=== PATIENT | male | born 1955 | race African-American/Black ===

== ENCOUNTER 2016-09-20 03:56 | Emergency (ER) | payer OTHER ==
[~2016-09-20] VITALS: Ht 167.6 cm; Wt 79.4 kg
[~2016-09-20 03:56] MED LIST: AMLODIPINE BESY10 MG PO; BLOOD PRESSURE; POTASSIUM20 PO; SLEEPING PILL
[2016-09-20] MEDS ORDERED: RESTORIL30 MG PO (04:25)
[2016-09-20] MEDS ORDERED: COZAAR 50 MG TA50 M2 PO (04:25)
[2016-09-20] MEDS ORDERED: PREDNISONE 10 M10 MG PO (04:25)
[2016-09-20] MEDS ORDERED: HYDROCHLOROTHIA25 M2 PO (04:25)
[2016-09-20] MEDS ORDERED: CIALIS5 MG PO (04:25)
[2016-09-20] MEDS ORDERED: VITAMIN D1000 UNI1 PO (04:26)
[2016-09-20] MEDS ORDERED: VENTOLIN HFA 1818 GM INH (06:08)
[2016-09-20] MEDS ORDERED: SPACERADULT PO (06:08)
[2016-09-20 06:28] VITALS: BP 142/86
== END 2016-09-20 06:41 | disposition home or self-care (01) ==
LOC: ER 03:56
DX: S01.81XA Laceration without foreign body of other part of head, initial encounter (principal); F10.120 Alcohol abuse with intoxication, uncomplicated; Z85.118 Personal history of other malignant neoplasm of bronchus and lung; J45.909 Unspecified asthma, uncomplicated; J44.9 Chronic obstructive pulmonary disease, unspecified; Z86.12 Personal history of poliomyelitis; Z88.6 Allergy status to analgesic agent; F17.210 Nicotine dependence, cigarettes, uncomplicated; F10.99 Alcohol use, unspecified with unspecified alcohol-induced disorder; Y04.2XXA Assault by strike against or bumped into by another person, initial encounter

== ENCOUNTER 2016-09-26 14:08 | Emergency (ER) | payer OTHER ==
[~2016-09-26] VITALS: Ht 172.7 cm; Wt 74.8 kg
[~2016-09-26 14:08] MED LIST changes: +CIALIS5 MG PO; +COZAAR 50 MG TA50 M2 PO; +HYDROCHLOROTHIA25 M2 PO; +PREDNISONE 10 M10 MG PO; +RESTORIL30 MG PO; +SPACERADULT PO; +VENTOLIN HFA 1818 GM INH; +VITAMIN D1000 UNI1 PO
[2016-09-26 14:12] VITALS: BP 154/83
== END 2016-09-26 14:22 | disposition home or self-care (01) ==
LOC: ER 14:08
DX: Z48.02 Encounter for removal of sutures (principal); F10.99 Alcohol use, unspecified with unspecified alcohol-induced disorder; F17.210 Nicotine dependence, cigarettes, uncomplicated; J45.909 Unspecified asthma, uncomplicated; J44.9 Chronic obstructive pulmonary disease, unspecified; Z88.1 Allergy status to other antibiotic agents; Z88.5 Allergy status to narcotic agent; Z88.8 Allergy status to other drugs, medicaments and biological substances; Z85.118 Personal history of other malignant neoplasm of bronchus and lung

== ENCOUNTER 2017-08-04 09:46 | Emergency (ER) | payer OTHER ==
[~2017-08-04] VITALS: Ht 175.3 cm; Wt 70.3 kg
[2017-08-04] MEDS ORDERED: CYCLOBENZAPRINE5 MG PO (10:17)
[2017-08-04] MEDS ORDERED: ROXICODONE5 M2 PO (11:04)
[2017-08-04 11:10] VITALS: BP 136/73
== END 2017-08-04 11:23 | disposition home or self-care (01) ==
LOC: ER 09:46
DX: S76.012A Strain of muscle, fascia and tendon of left hip, initial encounter (principal); M62.838 Other muscle spasm; J44.9 Chronic obstructive pulmonary disease, unspecified; F17.210 Nicotine dependence, cigarettes, uncomplicated; Z85.118 Personal history of other malignant neoplasm of bronchus and lung; Z88.8 Allergy status to other drugs, medicaments and biological substances; Z88.6 Allergy status to analgesic agent; Z88.5 Allergy status to narcotic agent; X58.XXXA Exposure to other specified factors, initial encounter; Y93.89 Activity, other specified; Y92.89 Other specified places as the place of occurrence of the external cause; Y99.8 Other external cause status

== ENCOUNTER → 2018-02-22 | Outpatient (CLI) | payer OTHER ==
[~2018-02-22] MED LIST changes: +CYCLOBENZAPRINE5 MG PO; +PREDNISONE50 MG PO; +ROXICODONE5 M2 PO
== END ==
LOC: MRI 12:16
DX: M51.37 Other intervertebral disc degeneration, lumbosacral region (principal); M48.07 Spinal stenosis, lumbosacral region; G89.29 Other chronic pain; M54.32 Sciatica, left side

== ENCOUNTER → 2018-04-07 | Outpatient (CLI) | payer OTHER, SELFPAY | LOC: MRI 10:26 | DX: M47.812 Spondylosis without myelopathy or radiculopathy, cervical region (principal); M50.322 Other cervical disc degeneration at C5-C6 level; M50.223 Other cervical disc displacement at C6-C7 level; M25.78 Osteophyte, vertebrae; M47.816 Spondylosis without myelopathy or radiculopathy, lumbar region; M43.17 Spondylolisthesis, lumbosacral region; M48.061 Spinal stenosis, lumbar region without neurogenic claudication; G95.9 Disease of spinal cord, unspecified; J90 Pleural effusion, not elsewhere classified ==

== ENCOUNTER → 2018-07-27 | Outpatient (CLI) | payer OTHER ==
[~2018-07-27] VITALS: Ht 172.7 cm; Wt 72.6 kg
[~2018-07-27] MED LIST changes: +FLEXERIL PO
[2018-07-27 10:23] VITALS: BP 147/83
[2018-07-27 10:54] LABS: HEMATOCRIT 41.3 % (42.0-52.0); HEMOGLOBIN 14.3 gm/dL (14.0-18.0); MCH 31.4 pg (26.0-34.0); MCHC 34.6 g/dL (28.0-37.0); MCV 90.7 fL (80.0-100.0); RBC 4.55 mil/uL (4.50-6.00); RDW 15.5 % (10.5-14.5); WBC 5.1 thou/uL (4.0-11.0)
[2018-07-27 11:04] LABS: CALCIUM 9.5 mg/dL (8.5-10.1); CREATININE 0.7 mg/dL (0.7-1.3); POTASSIUM 3.5 mmol/L (3.5-5.1)
[2018-07-27 11:06] LABS: PROTIME 10.6 Seconds (9.3-11.4)
== END | disposition home or self-care (01) ==
LOC: SPEC 07:23
PROVIDERS: Radiology Vascular & Interventional Radiology
DX: Z45.2 Encounter for adjustment and management of vascular access device (principal); Z85.118 Personal history of other malignant neoplasm of bronchus and lung; Z90.2 Acquired absence of lung [part of]; J43.9 Emphysema, unspecified; I10 Essential (primary) hypertension; E78.5 Hyperlipidemia, unspecified; F17.210 Nicotine dependence, cigarettes, uncomplicated; Z98.890 Other specified postprocedural states; Z79.899 Other long term (current) drug therapy; Z88.8 Allergy status to other drugs, medicaments and biological substances; Z79.891 Long term (current) use of opiate analgesic

== ENCOUNTER 2019-12-08 16:26 | Emergency (ER) | payer OTHER ==
[~2019-12-08] VITALS: Ht 172.7 cm; Wt 72.6 kg
[2019-12-08 18:10] LABS: HEMATOCRIT 42.1 % (42.0-52.0); HEMOGLOBIN 14.6 gm/dL (14.0-18.0); MCH 33.4 pg (26.0-34.0); MCHC 34.7 g/dL (28.0-37.0); MCV 96.2 fL (80.0-100.0); RBC 4.38 mil/uL (4.50-6.00); RDW 15.5 % (10.5-14.5); WBC 8.7 thou/uL (4.0-11.0)
[2019-12-08 18:20] LABS: BE(vivo) -1.5 mmol/L (-2 to +3); HCO3 22.7 mmol/L (22.0-26.0); PCO2 36.6 mmHg (35.0-45.0); PO2 75.1 mmHg (80.0-100.0); sO2 95.3 % (92.0-98.0)
[2019-12-08 18:29] LABS: ANION GAP 13 mmol/L (7-16); BUN 9 mg/dL (7-18); CALCIUM 8.6 mg/dL (8.5-10.1); CHLORIDE 96 mmol/L (98-107); CO2 24 mmol/L (21-32); CREATININE 0.8 mg/dL (0.7-1.3); GLUCOSE 84 mg/dL (74-106); SODIUM 133 mmol/L (136-145); TROPONIN-I <0.06 ng/mL (<0.06)
[2019-12-08 18:34] LABS: POTASSIUM 2.7 mmol/L (3.5-5.1)
[2019-12-08 18:40] LABS: DIRECT BILIRUBIN 0.3 mg/dL (<0.1-0.2); TOTAL BILIRUBIN 0.6 mg/dL (<0.1-1.0); TOTAL PROTEIN 6.8 g/dL (6.4-8.2)
[2019-12-08 18:44] LABS: APTT 36.6 Seconds (24.5-32.8); PROTIME 10.6 Seconds (9.3-11.4)
[2019-12-08] MEDS ORDERED: TRAZODONE HCL100 MG PO (18:48)
[2019-12-08] MEDS ORDERED: ESCITALOPRAM OX10 MG PO (18:52)
[2019-12-08] MEDS ORDERED: CARVEDILOL6.25 M1 PO (18:52)
[2019-12-08] MEDS ORDERED: NEURONTIN 300300 M1 PO (18:53)
[2019-12-08] MEDS ORDERED: KLOR-CON M2020 MEQ PO (18:53)
[2019-12-08] MEDS ORDERED: LISINOPRIL10 MG PO (18:54)
[2019-12-08 19:29] LABS: URINE BILIRUBIN NEGATIVE (Negative); URINE BLOOD 2+ (Negative); URINE CLARITY CLEAR; URINE COLOR YELLOW; URINE GLUCOSE-RANDOM* NEGATIVE (Negative); URINE KETONES NEGATIVE (Negative); URINE NITRITE-REFLEX NEGATIVE (Negative); URINE PROTEIN (DIPSTICK) 2+ (Negative); URINE SPECIFIC GRAVITY <= 1.005 (1.005-1.035)
[2019-12-08 19:32] LABS: URINE LEUKOCYTES-REFLEX 3+ (Negative)
[2019-12-08 19:39] LABS: AMP/METHAMP Negative (Negative); BARBITURATES Negative (Negative); BENZODIAZEPINES Negative (Negative); COCAINE Negative (Negative); METHADONE Negative (Negative); OPIATES Negative (Negative); PCP Negative (Negative)
[2019-12-08 19:43] LABS: CASTS None Seen /LPF (None Seen); CRYSTALS None Seen /LPF (None Seen); SQUAMOUS None Seen /LPF (0-3); URINE RBC 0-2 Rare /HPF (0-2); URINE WBC-REFLEX >25 Many /HPF (0-5)
[2019-12-08] MEDS ORDERED: TESSALON PERLE100 MG PO (20:27)
[2019-12-08] MEDS ORDERED: PREDNISONE 20 M20 MG PO (20:27)
[2019-12-08] MEDS ORDERED: MAG-OXIDE400 MG PO (20:27)
[2019-12-08] MEDS ORDERED: DOXYCYCLINE 10100 MG PO (20:27)
[2019-12-08] MEDS ORDERED: VENTOLIN HFA 1818 GM INH (20:27)
[2019-12-08 21:16] VITALS: BP 145/84
--- NOTE | 2019-12-09 08:40 | EKG ---
[facility] [place] [address] ELECTROCARDIOGRAM REPORT Name: MELVA ARANA Room #: DEP [facility]#: [id number] Admission: 12/08/19 Attend Phys: Discharge: 12/08/19 Date of : 57 Report #: [id number] THIS REPORT FOR: cc: Torres Abraham James A. DO Couchonnal, Luis F. MD ~ THIS REPORT FOR: //name// [facility] ED Test Date: 2019-12-08 Test Time: 17:58:47 Pat Name: MELVA ARANA Department: Room: Gender: Grazing Examiner: ariella : 1955 Requested By: Jordan Garza Order Number: [id number] MD: Michele Nguyen Measurements Intervals [place] Rate: 99 P: 49 IN: 206 QRS: 33 QRSD: 97 T: 73 QT: 359 QTc: 461 Interpretive Statements Sinus rhythm Probable left atrial enlargement LVH with secondary repolarization abnormality Anterior Q waves, possibly due to LVH Compared to ECG 04/28/2015 11:03:01 Left ventricular hypertrophy now present Early repolarization now present Q waves now present Electronically Signed On 12-09-2019 8:38:44 CDT by Michele Nguyen [email or web address] <ELECTRONICALLY SIGNED> By: Michele Nguyen MD 12/09/19 0838 [id number] Michele Nguyen MD /EPI
== END 2019-12-08 21:17 | disposition still patient (30) ==
LOC: ER 16:26
PROVIDERS: Emergency Medicine
DX: J44.1 Chronic obstructive pulmonary disease with (acute) exacerbation (principal); J06.9 Acute upper respiratory infection, unspecified; N39.0 Urinary tract infection, site not specified; E87.6 Hypokalemia; E83.42 Hypomagnesemia; I10 Essential (primary) hypertension; F10.10 Alcohol abuse, uncomplicated; F17.210 Nicotine dependence, cigarettes, uncomplicated; Z79.899 Other long term (current) drug therapy; Z88.6 Allergy status to analgesic agent; Z90.2 Acquired absence of lung [part of]; Y90.9 Presence of alcohol in blood, level not specified

== ENCOUNTER 2020-06-18 20:48 | Emergency (ER) | payer OTHER ==
[~2020-06-18] VITALS: Ht 172.7 cm; Wt 72.6 kg
[~2020-06-18 20:48] MED LIST changes: +CARVEDILOL6.25 M1 PO; +DOXYCYCLINE 10100 MG PO; +ESCITALOPRAM OX10 MG PO; +KLOR-CON M2020 MEQ PO; +LISINOPRIL10 MG PO; +MAG-OXIDE400 MG PO; +NEURONTIN 300300 M1 PO; +PREDNISONE 20 M20 MG PO; +TESSALON PERLE100 MG PO; +TRAZODONE HCL100 MG PO
[2020-06-18] MEDS ORDERED: ZPAK PO (22:42)
[2020-06-18] MEDS ORDERED: PREDNISONE 20 M20 M1 PO (22:42)
[2020-06-18 23:52] VITALS: BP 146/81
--- NOTE | 2020-06-19 11:22 | EKG ---
[facility] [place] [address] ELECTROCARDIOGRAM REPORT Name: MELVA ARANA Room #: REG [facility]#: [id number] Admission: 06/18/20 Attend Phys: Discharge: Date of : 57 Report #: [id number] THIS REPORT FOR: cc: oTrres Abraham James A. DO Santiago, Patrick MD [facility] ~ THIS REPORT FOR: //name// [facility] ED Test Date: 2020-06-18 Test Time: 22:04:22 Pat Name: MELVA ARANA Department: Room: Gender: M Placement Interviewer: David : 1955 Requested By: Prem Brannon Order Number: [id number] MD: Larry Hayes Measurements Intervals [place] Rate: 83 P: 51 [place]: 170 QRS: 33 QRSD: 110 T: 47 QT: 441 QTc: 519 Interpretive Statements Sinus rhythm Probable left atrial enlargement Anteroseptal infarct, old Prolonged QT interval Artifact in lead(s) I,II,aVR,aVF,V1,V2 Compared to ECG 12/08/2019 17:58:47 Myocardial infarct finding now present Electronically Signed On 06-19-2020 11:22:06 CDT by Larry Hayes [email or web address] <ELECTRONICALLY SIGNED> By: Larry Hayes MD, FACC 06/19/20 1122 03 03 Larry Hayes MD, FACC /EPI
== END 2020-06-18 23:47 | disposition home or self-care (01) ==
LOC: ER 20:48
DX: J44.1 Chronic obstructive pulmonary disease with (acute) exacerbation (principal); F10.129 Alcohol abuse with intoxication, unspecified; I10 Essential (primary) hypertension; F17.210 Nicotine dependence, cigarettes, uncomplicated; Z79.899 Other long term (current) drug therapy; Z88.5 Allergy status to narcotic agent; Z88.8 Allergy status to other drugs, medicaments and biological substances; Y90.9 Presence of alcohol in blood, level not specified

== ENCOUNTER 2020-07-31 14:55 | Emergency (ER) | payer OTHER ==
[~2020-07-31] VITALS: Ht 170.2 cm; Wt 79.4 kg
[~2020-07-31 14:55] MED LIST changes: +PREDNISONE 20 M20 M1 PO; +ZPAK PO
[2020-07-31 15:47] LABS: ABSOLUTE NEUTROPHILS 2.1 thou/uL (1.4-8.2); BASOPHILS 1.1 % (0.0-2.0); EOSINOPHILS 3.5 % (0.0-3.0); HEMATOCRIT 39.8 % (42.0-52.0); HEMOGLOBIN 13.6 gm/dL (14.0-18.0); LYMPHOCYTES 41.5 % (24.0-44.0); MCH 34.6 pg (26.0-34.0); MCHC 34.1 g/dL (28.0-37.0); MCV 101.6 fL (80.0-100.0); PLATELET COUNT 266 thou/uL (150-400); POLYS 43.9 % (36.0-66.0); RBC 3.92 mil/uL (4.50-6.00); RDW 15.6 % (10.5-14.5); WBC 4.9 thou/uL (4.0-11.0)
[2020-07-31 15:51] LABS: ANION GAP 9 mmol/L (7-16); BUN 18 mg/dL (7-18); CALCIUM 8.9 mg/dL (8.5-10.1); CHLORIDE 104 mmol/L (98-107); CO2 26 mmol/L (21-32); CREATININE 0.8 mg/dL (0.7-1.3); GLUCOSE 83 mg/dL (74-106); POTASSIUM 3.3 mmol/L (3.5-5.1); SODIUM 139 mmol/L (136-145)
[2020-07-31 16:01] LABS: ALBUMIN 3.1 g/dL (3.4-5.0); SGOT 21 U/L (15-37); SGPT 17 U/L (30-65); TOTAL BILIRUBIN 0.2 mg/dL (0.2-1.0); TROPONIN-I <0.06 ng/mL (<0.06)
[2020-07-31 19:54] VITALS: BP 144/80
--- NOTE | 2020-08-01 07:09 | EKG ---
[facility] [place] [address] ELECTROCARDIOGRAM REPORT Name: MELVA ARANA Room #: DEP [facility]#: [id number] Admission: 07/31/20 Attend Phys: Discharge: 07/31/20 Date of : 57 Report #: [id number] THIS REPORT FOR: cc: Torres Abraham James A. DO Santiago, Patrick MD [facility] ~ THIS REPORT FOR: //name// [facility] ED Test Date: 2020-07-31 Test Time: 18:42:43 Pat Name: MELVA ARANA Department: Room: Gender: Resident Care Provider: YUN : 1955 Requested By: Barbara Alonso Order Number: [id number] MD: Larry Hayes Measurements Intervals [place] Rate: 64 P: 42 IN: 234 QRS: 43 QRSD: 91 T: 60 QT: 417 QTc: 431 Interpretive Statements Sinus rhythm Prolonged IN interval Compared to ECG 06/18/2020 22:04:22 First degree AV block now present Myocardial infarct finding no longer present Prolonged QT interval no longer present Electronically Signed On 08-01-2020 7:09:22 EQUIPMENT APPLICATION SPECIALIST by Larry Hayes [email or web address] <ELECTRONICALLY SIGNED> By: Larry Hayes MD, FACC 08/01/20 [id number] [id number] 41 Larry Hayes MD, FAC /EPI
== END 2020-07-31 19:57 | disposition home or self-care (01) ==
LOC: ER 14:55
PROVIDERS: Physician Assistant
DX: F10.129 Alcohol abuse with intoxication, unspecified (principal); R04.0 Epistaxis; I10 Essential (primary) hypertension; J44.9 Chronic obstructive pulmonary disease, unspecified; F17.210 Nicotine dependence, cigarettes, uncomplicated; Z79.2 Long term (current) use of antibiotics; Z79.899 Other long term (current) drug therapy; Z88.5 Allergy status to narcotic agent; Z88.8 Allergy status to other drugs, medicaments and biological substances; Y90.8 Blood alcohol level of 240 mg/100 ml or more

== ENCOUNTER 2021-04-24 11:01 | Emergency (ER) | payer OTHER ==
[~2021-04-24] VITALS: Ht 175.3 cm; Wt 70.3 kg
[2021-04-24 11:02] VITALS: BP 140/82
== END 2021-04-24 13:31 | disposition home or self-care (01) ==
LOC: ER 11:01
DX: T78.3XXA Angioneurotic edema, initial encounter (principal); T46.4X5A Adverse effect of angiotensin-converting-enzyme inhibitors, initial encounter; R22.0 Localized swelling, mass and lump, head; J45.909 Unspecified asthma, uncomplicated; J44.9 Chronic obstructive pulmonary disease, unspecified; I10 Essential (primary) hypertension; F17.210 Nicotine dependence, cigarettes, uncomplicated; Z79.899 Other long term (current) drug therapy; Z88.6 Allergy status to analgesic agent; Z88.5 Allergy status to narcotic agent; Y93.89 Activity, other specified

== ENCOUNTER 2021-09-03 10:23 | Emergency (ER) | payer OTHER ==
[~2021-09-03] VITALS: Ht 172.7 cm; Wt 65.3 kg
[2021-09-03 11:57] VITALS: BP 121/65
== END 2021-09-03 13:31 | disposition home or self-care (01) ==
LOC: ER 10:23
DX: S61.012A Laceration without foreign body of left thumb without damage to nail, initial encounter (principal); J44.9 Chronic obstructive pulmonary disease, unspecified; I10 Essential (primary) hypertension; F17.210 Nicotine dependence, cigarettes, uncomplicated; Z79.899 Other long term (current) drug therapy; Z88.6 Allergy status to analgesic agent; Z98.890 Other specified postprocedural states; W26.0XXA Contact with knife, initial encounter; Y93.89 Activity, other specified; Y92.89 Other specified places as the place of occurrence of the external cause; Y99.8 Other external cause status

== ENCOUNTER 2021-09-11 10:21 | Emergency (ER) | payer OTHER ==
[~2021-09-11] VITALS: Ht 172.7 cm; Wt 66.2 kg
[2021-09-11 10:51] VITALS: BP 136/81
== END 2021-09-11 11:50 | disposition home or self-care (01) ==
LOC: ER 10:21
DX: S61.012D Laceration without foreign body of left thumb without damage to nail, subsequent encounter (principal); J44.9 Chronic obstructive pulmonary disease, unspecified; I10 Essential (primary) hypertension; F17.210 Nicotine dependence, cigarettes, uncomplicated; Z48.02 Encounter for removal of sutures; Z98.890 Other specified postprocedural states; Z79.899 Other long term (current) drug therapy; Z88.5 Allergy status to narcotic agent; Z88.6 Allergy status to analgesic agent; X58.XXXD Exposure to other specified factors, subsequent encounter